=== PATIENT | female | born 1960 | race African-American/Black ===

== ENCOUNTER → 2018-06-05 | Outpatient (CLI) | payer BC ==
[~2018-06-05] MED LIST: DIOVAN HCT 1601 EAC1 PO; HYDROCODON-ACE1 EACH PO; LEVOXYL75 MCG PO; XANAX 0.25 MG0.25 MG PO
== END ==
LOC: RAD 10:30
DX: Z12.31 Encounter for screening mammogram for malignant neoplasm of breast (principal); I10 Essential (primary) hypertension

== ENCOUNTER → 2018-06-11 | Outpatient (CLI) | payer BC | LOC: ULTRA 10:20 | DX: R22.43 Localized swelling, mass and lump, lower limb, bilateral (principal) ==

== ENCOUNTER 2019-03-26 00:01 | Emergency (ER) | payer BC ==
[~2019-03-26] VITALS: Ht 162.6 cm; Wt 82.1 kg
[2019-03-26] MEDS ORDERED: ASPIR 8181 MG PO (00:38)
[2019-03-26 01:14] LABS: ABSOLUTE NEUTROPHILS 2.9 thou/uL (1.4-8.2); ANION GAP 9 mmol/L (7-16); BASOPHILS 0.4 % (0.0-2.0); BUN 19 mg/dL (7-18); CALCIUM 9.1 mg/dL (8.5-10.1); CHLORIDE 100 mmol/L (98-107); CO2 29 mmol/L (21-32); CREATININE 0.9 mg/dL (0.6-1.0); EOSINOPHILS 3.5 % (0.0-3.0); GLUCOSE 113 mg/dL (74-106); HEMATOCRIT 24.2 % (37.0-47.0); HEMOGLOBIN 8.2 gm/dL (12.0-15.0); LYMPHOCYTES 45.1 % (24.0-44.0); MCH 29.8 pg (26.0-34.0); MCV 87.5 fL (80.0-100.0); MONOCYTES 6.1 % (1.0-8.0); PLATELET COUNT 264 thou/uL (150-400); POLYS 44.9 % (36.0-66.0); POTASSIUM 3.5 mmol/L (3.5-5.1); RBC 2.77 mil/uL (4.20-5.00); RDW 13.6 % (10.5-14.5); SODIUM 138 mmol/L (136-145); WBC 6.5 thou/uL (4.0-11.0)
[2019-03-26 01:24] LABS: ALBUMIN 3.7 g/dL (3.4-5.0); DIRECT BILIRUBIN < 0.1 mg/dL (<0.1-0.3); SGOT 20 U/L (15-37); SGPT 24 U/L (30-65); TOTAL BILIRUBIN 0.1 mg/dL (<0.1-1.0); TOTAL PROTEIN 7.3 g/dL (6.4-8.2); TROPONIN-I <0.06 ng/mL (<0.06)
[2019-03-26 02:49] VITALS: BP 124/54
--- NOTE | 2019-03-26 08:15 | EKG ---
[address] [address] ELECTROCARDIOGRAM REPORT Name: LJ LIMON Room #: DEP [facility]#: [id number] ������������������ Admission: 03/26/19 ������������������ Attend Phys: Discharge: 03/26/19 ������������������ Date of : 58 Report #: [id number] ����������������������������������������������������������������� [id number] THIS REPORT FOR: //name// [facility] ED Test Date: 2019-03-26 Test Time: 01:12:24 Pat Name: LJ LMION Department: Room: Gender: F Crime Scene Technician: BISHNU : 1960 Requested By: Nilda Hughes Order Number: [id number] MD: Red Conway Measurements Intervals [place] Rate: 84 P: 49 GA: 140 QRS: 6 QRSD: 94 T: 13 QT: 381 QTc: 451 Interpretive Statements Sinus rhythm Probable left atrial enlargement Low voltage, precordial leads Borderline T abnormalities, anterior leads Compared to ECG 01/02/2012 19:43:53 Low QRS voltage now present T-wave abnormality now present Electronically Signed On 03-26-2019 8:15:30 CDT by Red Conway [email or web address] ��������������������������������������������� <ELECTRONICALLY SIGNED> ���������������������������������������� By: Red Conway MD ��������������������������������������������� 03/26/19 0815 0112 011 Red Conway MD /EPI
[2019-03-26 11:23] LABS: % SATURATION 16 % (20-39); IRON 63 ug/dL (50-170); TIBC 401 ug/dL (250-450)
== END 2019-03-26 02:50 | disposition home or self-care (01) ==
LOC: ER 00:01
PROVIDERS: Emergency Medicine; Nurse Practitioner Gerontology
DX: D64.9 Anemia, unspecified (principal); I10 Essential (primary) hypertension; E07.9 Disorder of thyroid, unspecified; Z90.722 Acquired absence of ovaries, bilateral; Z87.891 Personal history of nicotine dependence; Z91.041 Radiographic dye allergy status; Z91.040 Latex allergy status

== ENCOUNTER → 2019-04-03 | Outpatient (CLI) | payer BC ==
[~2019-04-03] MED LIST changes: +ASPIR 8181 MG PO; +IRON325 PO
[2019-04-03 08:30] VITALS: BP 116/62
[2019-04-03 09:19] VITALS: BP 143/62
[2019-04-03 09:25] VITALS: BP 143/62
[2019-04-03 09:50] VITALS: BP 124/58
--- NOTE | 2019-04-03 10:15 | NUR ---
IN FOR 1ST OF 2 INJECTAFER INFUSIONS FOR NEWLY DIAGNOSED IRON DEFICIENCY ANEMIA. REVIEWED ALL TEACHING WITH PT INCLUDING PLAN TO RETURN NEXT WEEK FOR 2ND DOSE, WHAT SIDE EFFECTS TO WATCH FOR, WHAT TO REPORT TO CARE PROVIDER. PT IS IN PROCESS OF GETTING SET UP FOR UPPER AND LOWER ENDOSCOPIES. PT HAS BEEN EXPERIENCING EXERTIONAL DYSPNEA, LOW ENERGY, FATIGUE, HEAVY LEGS RECENTLY. HAD CARDIAC WORKUP WHICH LED TO IRON DEFICIENCY DIAGNOSIS. TOLERATED INJECTAFER INFUSION OVER 30 MIN, WATCHED FOR 30 MINUTES POST. VSS THROUGHOUT. DISMISSED IN STABLE CONDITION. SCHEDULED TO RETURN AGAIN IN ONE WEEK.
== END ==
LOC: OPONC 08:07
DX: D50.9 Iron deficiency anemia, unspecified (principal); T45.4X5A Adverse effect of iron and its compounds, initial encounter
CPT/HCPCS: 95000

== ENCOUNTER → 2019-04-10 | Outpatient (CLI) | payer BC ==
[2019-04-10 08:30] VITALS: BP 123/59
[2019-04-10 09:05] VITALS: BP 144/66
[2019-04-10 09:33] VITALS: BP 132/69
--- NOTE | 2019-04-10 09:35 | NUR ---
HERE FOR 2ND AND FINAL DOSE OF INJECTAFER. STATES TOLERATED FIRST DOSE WITHOUT ANY NOTED SIDE EFFECTS. NO CHANGE IN HOW HER ENERGY LEVEL IS YET. LET PT KNOW THIS IS TO BE EXPECTED. PT IS AWAITING GI CONSULT AND PLANS TO CALL HER PCP TODAY TO FIND OUT STATUS OF THIS CONSULT. TOLERATED TODAY'S INFUSION WITHOUT INCIDENT, NO S/S REACTION, WATCHED FOR 30 MIN POST. DISMISSED IN STABLE CONDITION. WILL PLAN TO F/U WITH HER PCP.
== END ==
LOC: OPONC 01:15
DX: D50.8 Other iron deficiency anemias (principal); T45.4X5A Adverse effect of iron and its compounds, initial encounter
CPT/HCPCS: 95000

== ENCOUNTER → 2019-04-14 | Outpatient (CLI) | payer BC ==
[~2019-04-14] MED LIST changes: +NORCO 10-325 T1 EACH PO
--- NOTE | 2019-04-14 15:31 | NUR ---
PT. WAS SEEN IN CV HOLDING FOR IV START FOR CT ABD WELL CONTRAST PRE-MED. #18g STARTED IN RIGHT AC X1 ATTEMPT. IV SOLUMEDROL 125MG IVP AND BENADRYL 50MG IVP GIVEN. VSS. O2 SAT 98% ON RA. PT. COMPLETED CT WITH NO C/O AND NO REACTION NOTED. RECOVERED IN CV HOLDING. ORAL FLUIDS PUSHED. DAUGHTER HERE TO DRIVE PT HOME. SL DC'D WITH NO REDDNESS NO EDEMA. HOME WITH NO C/O.
== END ==
LOC: CAT 12:06
DX: D64.9 Anemia, unspecified (principal); R19.5 Other fecal abnormalities

== ENCOUNTER → 2019-04-21 | Outpatient (CLI) | payer BC ==
[~2019-04-21] VITALS: Ht 162.6 cm; Wt 82.6 kg
--- NOTE | 2019-04-22 18:05 | PATH ---
[facility] [place] [address] PATHOLOGY RPT PROCEDURE Name: KYLEIGH LERNER Room #: REG [facility] [place].#: [id number] ������������������ Admission: 04/21/19 ������������������ Date of : 58 Discharge: Report #: [id number] Path Case #: [id number] [facility] Accession Number: [id number] . 01 Material submitted: . PART A: stomach - GASTRIC BX R/O H. PYLORI PART B: colon - SIGMOID COLON POLYP X4. Modifiers: sigmoid . 01 Clinical history: . Pre-OP DX: Anemia, heme positive stool Post-OP DX: Mild gastritis, colon polyps, hemorrhoids . 02 Diagnosis: A. Gastric mucosa, rule out H. pylori, endoscopic biopsy: - Moderate reactive gastropathy. - Negative for intestinal metaplasia or atrophy. - Negative for Helicobacter pylori (properly controlled immunohistochemical stain performed). . B. Polyp x 4, sigmoid polyp, endoscopic biopsy: - All fragments showing hyperplastic polyps. - Negative for dysplasia. (IUV:pit 04/22/2019) QTP/04/22/2019 . 02 Electronically signed: . Desi Roy MD, Pathologist NPI- [id number] . 01 Gross description: . A. Received in formalin labeled "Kyleigh Lerner, gastric BX, rule out H. pylori," are multiple segments of lyons soft tissue measuring 1.5 x 0.5 x 0.1 cm in aggregate dimensions. The specimen is filtered and entirely submitted in cassette A1. . B. Received in formalin labeled "Kyleigh Lerner, sigmoid colon polyp x4," are 3 segments of lyons soft tissue measuring 1.2 x 0.7 x 0.3 cm in aggregate dimensions and ranging from 0.3 to 0.6 cm in maximum dimension. The specimen is submitted entirely in cassette B1. After thorough examination of the specimen container, no additional tissue was recovered. (TSD; 04/21/2019) TOB/TOB . 02 Pathologist provided ICD-10: K31.9, K63.5 . 02 CPT . [address] [address] PATHOLOGY RPT PROCEDURE Name: ASHLYKYLEIGH Room #: REG CL [place]i#: [id number] ������������������ Admission: 04/21/19 ������������������ Date of : 58 Discharge: Report #: [id number] Path Case #: [id number], [id number] Specimen Comment: A courtesy copy of this report has been sent to Specimen Comment: [phone], . Specimen Comment: Report sent to / DR LOBO Performed at: [address], [place] [id number] MD Cam Luna MD Phone: [phone] Performed at: [address] [id number] MD Desi Roy MD Phone: [phone]
== END | disposition home or self-care (01) ==
LOC: GI 06:55
DX: K63.5 Polyp of colon (principal); K31.9 Disease of stomach and duodenum, unspecified; K64.8 Other hemorrhoids; K29.70 Gastritis, unspecified, without bleeding; I10 Essential (primary) hypertension; E03.9 Hypothyroidism, unspecified; Z98.51 Tubal ligation status; Z91.041 Radiographic dye allergy status; Z91.040 Latex allergy status; Z88.8 Allergy status to other drugs, medicaments and biological substances; Z98.890 Other specified postprocedural states; Z79.899 Other long term (current) drug therapy
CPT/HCPCS: 62110; 62900

== ENCOUNTER → 2019-05-01 | Outpatient (CLI) | payer BC | END | disposition home or self-care (01) | LOC: GI 07:32 | DX: D50.9 Iron deficiency anemia, unspecified (principal); Z91.040 Latex allergy status; Z88.8 Allergy status to other drugs, medicaments and biological substances; Z79.82 Long term (current) use of aspirin; Z79.899 Other long term (current) drug therapy ==

== ENCOUNTER → 2019-07-21 | Outpatient (CLI) | payer BC | LOC: RAD 01:56 | DX: Z12.31 Encounter for screening mammogram for malignant neoplasm of breast (principal) ==

== ENCOUNTER → 2019-08-27 | Outpatient (CLI) | payer BC | LOC: CAT 13:04 | DX: R07.9 Chest pain, unspecified (principal); R06.02 Shortness of breath; I25.10 Atherosclerotic heart disease of native coronary artery without angina pectoris ==

== ENCOUNTER → 2020-07-22 | Outpatient (CLI) | payer BC | LOC: RAD 08:02 | PROVIDERS: ATTEND Nurse Practitioner | DX: Z12.31 Encounter for screening mammogram for malignant neoplasm of breast (principal) ==

== ENCOUNTER → 2020-10-27 | Outpatient (CLI) | payer BC | LOC: NUC 09:22 | PROVIDERS: ATTEND Nurse Practitioner | DX: M81.0 Age-related osteoporosis without current pathological fracture (principal); M85.852 Other specified disorders of bone density and structure, left thigh; Z79.52 Long term (current) use of systemic steroids ==

== ENCOUNTER → 2020-12-24 | Outpatient (CLI) | payer BC | LOC: ULTRA 12-20 09:24 | PROVIDERS: ATTEND Nurse Practitioner | DX: R10.10 Upper abdominal pain, unspecified (principal) ==

== ENCOUNTER → 2021-02-02 | Outpatient (CLI) | payer BC | LOC: RAD 09:59 | PROVIDERS: ATTEND Nurse Practitioner | DX: M47.26 Other spondylosis with radiculopathy, lumbar region (principal); M43.06 Spondylolysis, lumbar region; M47.24 Other spondylosis with radiculopathy, thoracic region; M41.84 Other forms of scoliosis, thoracic region; M43.8X4 Other specified deforming dorsopathies, thoracic region ==

== ENCOUNTER → 2021-07-29 | Outpatient (CLI) | payer BC | LOC: RAD 09:36 | PROVIDERS: ATTEND Nurse Practitioner | DX: Z12.31 Encounter for screening mammogram for malignant neoplasm of breast (principal) ==

== ENCOUNTER 2021-11-24 23:07 | Emergency (ER) | payer BC ==
[2021-11-24 23:32] VITALS: BP 165/83
== END 2021-11-24 23:35 | disposition left against medical advice (07) ==
LOC: ER 23:07
DX: R06.02 Shortness of breath (principal); Z53.21 Procedure and treatment not carried out due to patient leaving prior to being seen by health care provider